=== PATIENT | male | born 1955 | race Caucasian/White ===

== ENCOUNTER 2020-04-29 18:15 | Inpatient (IN) | payer OTHER ==
[~2020-04-29] VITALS: Ht 177.8 cm; Wt 52.2 kg
[2020-04-29 18:20] VITALS: BP 114/87
[2020-04-29 19:07] LABS: ABSOLUTE NEUTROPHILS 6.6 thou/uL (1.4-8.2); BASOPHILS 0.3 % (0.0-2.0); HEMATOCRIT 38.6 % (42.0-52.0); HEMOGLOBIN 13.2 gm/dL (14.0-18.0); LYMPHOCYTES 7.3 % (24.0-44.0); MCH 33.2 pg (26.0-34.0); MCHC 34.1 g/dL (28.0-37.0); MCV 97.4 fL (80.0-100.0); PLATELET COUNT 128 thou/uL (150-400); POLYS 81.4 % (36.0-66.0); RBC 3.97 mil/uL (4.50-6.00); RDW 12.8 % (10.5-14.5); WBC 8.1 thou/uL (4.0-11.0)
[2020-04-29 19:20] LABS: PROTIME 10.7 Seconds (9.3-11.4)
--- NOTE | 2020-04-29 19:51 | NUR ---
SISTER CALLS TO GET INFORMATION ON PATIENT'S STATUS. STATES THAT PATIENT HAS BEEN DRINKING AND HAS A SIGNIFICANT DRINKING PROBLEM. STATES THAT HE NEEDS HELP BUT PATIENT DOESN'T WANT TO CHANGE AT THIS POINT.
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
[2020-04-29 21:06] LABS: ANION GAP 10 mmol/L (7-16); BUN 10 mg/dL (7-18); CALCIUM 9.3 mg/dL (8.5-10.1); CHLORIDE 97 mmol/L (98-107); CO2 30 mmol/L (21-32); CREATININE 0.8 mg/dL (0.7-1.3); GLUCOSE 110 mg/dL (74-106); POTASSIUM 3.6 mmol/L (3.5-5.1); SODIUM 137 mmol/L (136-145)
[2020-04-29 21:15] LABS: TROPONIN-I <0.06 ng/mL (<0.06)
[2020-04-29 21:36] LABS: URINE BILIRUBIN 2+ (Negative); URINE BLOOD NEGATIVE (Negative); URINE CLARITY CLEAR; URINE COLOR YELLOW; URINE GLUCOSE-RANDOM* NEGATIVE (Negative); URINE KETONES 1+ (Negative); URINE LEUKOCYTES-REFLEX NEGATIVE (Negative); URINE PROTEIN (DIPSTICK) 1+ (Negative); URINE SPECIFIC GRAVITY 1.025 (1.005-1.035)
[2020-04-29 21:38] LABS: ICTOTEST (BILI CONFIRMATORY) Positive (Negative); URINE NITRITE-REFLEX POSITIVE (Negative)
[2020-04-29 21:51] LABS: BACTERIA-REFLEX 1-9 Few /HPF (None Seen); CRYSTALS None Seen /LPF (None Seen); SQUAMOUS 0-3 Few /LPF (0-3); URINE WBC-REFLEX None Seen /HPF (0-5)
[2020-04-29 21:52] LABS: HYALINE CASTS 0-3 Few /LPF (None Seen); URINE RBC None Seen /HPF (0-2)
[2020-04-29 22:35] VITALS: BP 127/73
[2020-04-29 22:39] VITALS: BP 114/66
[2020-04-29 23:49] VITALS: BP 106/70
[2020-04-30 00:13] VITALS: BP 119/76
--- NOTE | 2020-04-30 00:30 | NUR ---
Pt. was admitted to the unit from the emergency room accompanied by staff. He is alert and oriented. Admission assessment and history is completed. Iv morphine given for right shoulder pain (see emar) with some relief noted. Pt. has a non-productive cough. Danette MONAE called and aware of consult.
[2020-04-30] MEDS ORDERED: TYLENOL325 M1 PO (00:59)
--- NOTE | 2020-04-30 04:19 | NUR ---
Pt. to be transfered to 3[facility] as a covid rule out since he is coughing. Covid sample sent to the lab. Zofran given for c/o nausea with some relief noted (see emar). Report given to 3W RN.
[2020-04-30 05:30] VITALS: BP 117/77
--- NOTE | 2020-04-30 07:55 | EKG ---
[facility] [place] [address] ELECTROCARDIOGRAM REPORT Name: OLGA LIDIA BELTRE Room #: 363-P ADM IN M.R.#: [id number] Admission: 04/29/20 Attend Phys: Rangel Smith, Discharge: Date of : [birth year] Report #: [id number] THIS REPORT FOR: cc: RAUL - No family physician/PCP FAM - No family physician/PCP Jim Parry MD [facility] ~ THIS REPORT FOR: //name// [facility] ED Test Date: 2020-04-29 Test Time: 18:47:39 Pat Name: OLGA LIDIA BELTRE Department: Room: [facility] Gender: M Helper/Driver: niru : 1956-04-21 Requested By: Mike Bell Order Number: [id number] MD: Jim Parry Measurements Intervals Brilliant Rate: 103 P: 81 AK: 141 QRS: 24 QRSD: 110 T: 62 QT: 354 QTc: 464 Interpretive Statements Sinus tachycardia Abnormal R-wave progression, early transition No previous ECG available for comparison Electronically Signed On 04-30-2020 7:54:55 DIMETHYLANILINE SULFATOR OPERATOR by Jim Parry [email or web address] <ELECTRONICALLY SIGNED> By: Jim Parry MD, FACC 04/30/20 0754 [id number] Jim Parry MD, [facility] /EPI
[2020-04-30 08:00] VITALS: BP 114/72
--- NOTE | 2020-04-30 12:32 | NUR ---
PT MAY BE DC'D FROM [facility] PER ADALBERTO KLINE
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
[2020-04-30 21:00] VITALS: BP 106/69
[2020-05-01 00:09] VITALS: BP 100/66
--- NOTE | 2020-05-01 03:59 | NUR ---
Assumed pt care at 2100. Pt was a transfer from as a rule out. No sign of distress noted in pt. Upon arrival, pt is alert and oriented. ETOH., no symptoms of withdrawal noted. Pt verbalizes pain to right fractured shoulder. Assessment completed and documented. Scheduled meds administered to pt. Right arm immobilizer in place. No acute events overnight. Continue to monitor. No further needs at this time.
[2020-05-01 04:46] LABS: MCH 33.9 pg (26.0-34.0); MCHC 33.8 g/dL (28.0-37.0); MCV 100.1 fL (80.0-100.0); RBC 3.3 mil/uL (4.50-6.00); RDW 12.3 % (10.5-14.5); WBC 8.1 thou/uL (4.0-11.0)
[2020-05-01 04:52] LABS: CALCIUM 9.3 mg/dL (8.5-10.1); CREATININE 0.8 mg/dL (0.7-1.3); MAGNESIUM 1.7 mg/dL (1.8-2.4); POTASSIUM 3.5 mmol/L (3.5-5.1)
[2020-05-01 04:56] LABS: HEMOGLOBIN 11.2 gm/dL (14.0-18.0)
[2020-05-01 05:51] VITALS: BP 98/56
[2020-05-01 09:15] VITALS: BP 67/50; BP 87/47
[2020-05-01 12:33] VITALS: BP 97/60
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
[2020-05-01 15:40] VITALS: BP 102/66
--- NOTE | 2020-05-01 17:02 | NUR ---
ASSESSMENT CHARTED. PT ALERT AND ORIENTED. VSS. PRN PAIN MED GIVEN FOR RIGHT SHOULDER PAIN WITH PARTIAL RELIEF. EVALUATED BY PT/OT. PLAN TO BE DISCHARGE IN AM TO [facility]. NO CONCERNS AT THIS TIME.
[2020-05-01 20:31] VITALS: BP 92/54
--- NOTE | 2020-05-02 05:10 | NUR ---
Assumed pt care at 1900. Pt is alert and oriented. No sign of distress noted in pt. Pt is stablee. Assessment completed abd documented. verbalizes pain to right shoulder. Scheduled meds administered to pt. No acute events overnight. Continue to monitor. Pt to transfer to rehab today.
[2020-05-02 05:23] VITALS: BP 93/60
[2020-05-02] MEDS ORDERED: HYDROCODON-ACE1 EAC7 PO (07:38)
[2020-05-02 07:56] VITALS: BP 110/69
[2020-05-02 09:13] LABS: BE(vivo) 4.1 mmol/L (-2 to +3); HCO3 27.2 mmol/L (22.0-26.0); PCO2 35.3 mmHg (35.0-45.0); PO2 66.4 mmHg (80.0-100.0); pH 7.504 (7.360-7.450); sO2 94.8 % (92.0-98.0)
[2020-05-02] MEDS ORDERED: LITE COAT ASPI325 MG PO (10:26)
[2020-05-02 11:16] VITALS: BP 90/57
--- NOTE | 2020-05-02 12:15 | NUR ---
DC to acute rehab [facility] later this afternoon pending doppler results. Pt's verified as 1955 not 1955 as charted. [facility] liason and UR RN notified so they can verify his benefits and update his face sheet. Pt positive about dc to rehab and hopeful he can get started up there today.
[2020-05-02 15:23] VITALS: BP 81/40
--- NOTE | 2020-05-02 17:05 | NUR ---
ASSESSMENT CHARTED. PT ALERT AND ORIENTED. PRN PAIN MED GIVEN WITH PARTIAL RELIEF. RT TREATMENT PROVIDED ORDERED. UP IN THE CHAIR THIS SHIFT. PT PROGRESSING WELL TOWARDS DISCHARGE GOAL.
[2020-05-02 20:00] VITALS: BP 105/88
[2020-05-03 04:13] VITALS: BP 108/77
--- NOTE | 2020-05-03 06:51 | NUR ---
PAIN WELL CONTROLLED.COMPLAIN OF CONSTIPATION;MIRALAX GIVEN,NO RESULTS YET.POC CONTINUED.
[2020-05-03 08:03] VITALS: BP 95/64
[2020-05-03] MEDS ORDERED: XARELTO15 MG PO (10:20)
[2020-05-03 11:46] VITALS: BP 83/47
--- NOTE | 2020-05-03 14:22 | NUR ---
ASSESSMENT CHARTED. PT ALERT AND ORIENTED. VSS. PRN PAIN MED GIVEN WITH PARTIAL RELIEF. UP IN THE CHAIR THIS SHIFT. ORDERS GIVEN TO TRANSFER PT TO [address] [place], [place] [address]AB. REPORT CALLED IN TO THE NURSE.
== END 2020-05-03 14:27 | DRG 562 ==
LOC: ER 18:15 → EDBD 22:15 → 2N 22:15 → EROBS 22:15 → 4W 23:50 → 3W 04-30 05:32 → 2N 04-30 20:05
PROVIDERS: Emergency Medicine; Nurse Practitioner Family; Pediatrics; ADMIT Surgery; ATTEND Surgery
DX: S42.211A Unspecified displaced fracture of surgical neck of right humerus, initial encounter for closed fracture (principal); J96.01 Acute respiratory failure with hypoxia; I26.99 Other pulmonary embolism without acute cor pulmonale; E43 Unspecified severe protein-calorie malnutrition; S06.9X9A Unspecified intracranial injury with loss of consciousness of unspecified duration, initial encounter; N39.0 Urinary tract infection, site not specified; J93.83 Other pneumothorax; Z68.1 Body mass index [BMI] 19.9 or less, adult; J43.9 Emphysema, unspecified; F10.20 Alcohol dependence, uncomplicated; R13.10 Dysphagia, unspecified; F17.210 Nicotine dependence, cigarettes, uncomplicated; I95.9 Hypotension, unspecified; Z20.828 Contact with and (suspected) exposure to other viral communicable diseases; Z71.6 Tobacco abuse counseling; Z23 Encounter for immunization; Z79.899 Other long term (current) drug therapy; W18.39XA Other fall on same level, initial encounter; Y93.89 Activity, other specified; Y92.89 Other specified places as the place of occurrence of the external cause; Y99.8 Other external cause status
CPT/HCPCS: 10045; 10081; 10797

== ENCOUNTER 2020-05-02 12:53 | Inpatient (IN) | payer OTHER ==
[~2020-05-02] VITALS: Ht 152.4 cm; Wt 52.1 kg
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
[~2020-05-02 12:53] MED LIST: HYDROCODON-ACE1 EAC7 PO; LITE COAT ASPI325 MG PO; TYLENOL325 M1 PO
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
[2020-05-03] MEDS ORDERED: XARELTO15 MG PO (10:20)
--- NOTE | 2020-05-03 16:53 | NUR ---
ASSUMED CARE AT 1430. NEW ADMISSION FROM CCU. CAME IN VIA WC WITH A HOSPITAL STAFF. PT IS ALERT AND ORIENTATED. REPORTS PAIN IN R SHOULDER AT 6/10 ON ARRIVAL AND NORCO NOT DUE TILL 1600. PT IS PLEASANT AND APPROPRIATE WITH NO SIGNS OF DISTRESS OR ANY WITHDRAWAL CONCERNS. R SHOULDER IN IMMOBILIZER WITH GOOD CIRCULATION. BP 98/60, RUNS NORMALLY BETWEEN SBP 80-100. NO SYMPTOMS OF LIGHTHEADEDNESS OR DIZZINESS. DENIES ANY CHEST PAIN OR SHORT OF AIR. HAS PE AND CURRENTLY ON XARELTO. PT, OT TO EVAL AND TREAT. ASSESSMENT DONE AND DOCUMENTED. CONT TO MONITOR.
[2020-05-03 20:09] VITALS: BP 101/64
--- NOTE | 2020-05-04 03:26 | NUR ---
ASSUMED CARE APPROX 1900 EVENING 05/03. PT SITTING UP IN RECLINER AT CHANGE OF SHIFT. PT VOIDING PER URINAL. PT WEARING IMMOBILIZER IN BED AND PT GIVEN PAIN PILL AT HS. PT APPEARS TO BE SLEEPING SOUNDLY WITH HOURLY ROUNDING CHECKS. BED ALARM ON AND CALL LIGHT IN REACH. WILL CONTINUE TO MONITOR.
[2020-05-04 06:26] LABS: HEMATOCRIT 31.8 % (42.0-52.0); HEMOGLOBIN 10.7 gm/dL (14.0-18.0); MCH 33.7 pg (26.0-34.0); MCHC 33.7 g/dL (28.0-37.0); RBC 3.18 mil/uL (4.50-6.00); RDW 12.7 % (10.5-14.5); WBC 6.2 thou/uL (4.0-11.0)
[2020-05-04 06:34] LABS: CALCIUM 9.6 mg/dL (8.5-10.1); CREATININE 0.6 mg/dL (0.7-1.3); POTASSIUM 3.9 mmol/L (3.5-5.1)
[2020-05-04 07:05] LABS: FOLIC ACID 16.3 ng/mL (8.6-58.9); TSH 2.166 uIU/mL (0.358-3.740)
[2020-05-04 08:22] VITALS: BP 87/60
--- NOTE | 2020-05-04 11:49 | NUR ---
ASSUMED CARE AT 0700. PT HAD AN UNEVENTFUL NIGHT AND SLEPT FAIRLY WELL. ALERT AND ORIENTATED AND SEEMS ANXIOUS AND REQUESTED FOR PAIN MEDS. REPORTS PAIN AT 9/10 AT SHIFT CHANGE. APPETITE GOOD, HAD A BOWEL MOVEMENT TODAY. PARTICIPATING IN THERAPY BUT SEEMS ANXIOUS. RUE SECURED IN IMMOBILIZER, NWB, CIRCULATION GOOD, ABLE TO MOVE FINGERS. HYPOTENSIVE THIS MORNING WITH NO SIGNS OF LIGHTHEADEDNESS OR DIZZINESS. RECHECKED AND IS UP IN THE SBP 90S. PT IS CALLING APPROPRIATELY WITH NO SIGN OF DISTRESS OR IMPULSIVENESS. CONT TO MONITOR.
[2020-05-04 19:35] VITALS: BP 98/62
--- NOTE | 2020-05-05 03:01 | NUR ---
05-04-20 CARE TRANSFERRED 1899 OBSERVED PT SITTING UP IN BED WATCHING TV. 193 PT AAOX4, VSS, RR EVEN AND NONLABORED ON RA, AUDIBLE WHEEZING NOTED, UPON AUSCULATION PT LUNGS DIMINISHED AND FINE CRACKLES NOTED BI-LAT, 02 SAT 93%. PT REPORTS PAIN AT 10 ON 0-10 SCALE RT ARM. PULMONARY CONTACTED FOR PT EVENING BREATHING TREATMENT. PT PRN PAIN MEDICATION ADMIN. THEN STAND-BY ASSIST WITH GAIT BELT IN PLACE AND PT MOVE WITH WALKER, PT GAIT STARTED OUT UNSTEADY, BUT AFTER A FEW FIRST STEPS GAIT BECAME STRONGER. PT HAD LARGE BROWN, FORMED BM, WITH YELLOW URINE. DURING MEDICATION ADMIN PT HAD NO DIFFICULTIES. LATER ASSISTED PT WITH REPOSITION IN BED AND EMPTY 175ML OF YELLOW URINE, NO SEDIMENT OR FOUR ORDOR NOTED. LATER PT REPORTED PAIN AT 9 ON 0-10 SCALE AND PRN PAIN MEDICATION ADMIN. DURING NEXT ROUND AND REASSESSMENT NOTED PT SUPINE, RESTING WITH EYES CLOSED. ZERO S/S OF ACUTE DISTRESS NOTED, PT WILL CONTINUE TO BE MONITOR PER 5[facility] PROTOCOL.
[2020-05-05 08:09] VITALS: BP 98/61
--- NOTE | 2020-05-05 10:16 | NUR ---
ASSUMED CARE AT 0700. PATIENT IS ALERT AND ORIENTEDX4. PATIENT HAS RIGHT SHOULDER AND ARM PAIN. RIGHT ARM IN SLING/IMMOBILIZER. LUNGS ARE COARSE AND DEMINISHED , WITH WHEEZES. PATIENT CONTINUES ON RESPIRATORY TX. UP IN CHAIR FOR MEALS. GAIT UNSTEADY. UP WITH ASISST OF 1 STAFF AND GAIT BELT AND WALKER. FALL AND SAFETY PROTOCOLS IN PLACE. C/O PAIN IN HIS RIGHT ARM AND SHOULDER. PATIENT MEDICATED WITH PRN PAIN MED. CONTNIUES TO PROGRESS SLOWLY TOWARDS D/C GOALS. WILL CONTINUE TO MONITER.
[2020-05-05 19:20] VITALS: BP 106/64
--- NOTE | 2020-05-06 00:23 | NUR ---
PT ALERT AND ORIENTED X 4. VOIDING WITHOUT DIFFICULTY PER URINAL. RIGHT ARM SLING ON. PT C/O PAIN IN RIGHT SHOULDER. HYDROCODONE GIVEN ORDERED. BED ALARM ON FOR SAFETY. PT CHECKED ON HOURLY ROUNDS.
[2020-05-06 08:00] VITALS: BP 104/59
[2020-05-06 08:05] LABS: HEMATOCRIT 32.6 % (42.0-52.0); MCH 34.3 pg (26.0-34.0); MCHC 33.9 g/dL (28.0-37.0); MCV 101.2 fL (80.0-100.0); RBC 3.22 mil/uL (4.50-6.00); RDW 12.5 % (10.5-14.5); WBC 5.2 thou/uL (4.0-11.0)
[2020-05-06 08:06] LABS: PLATELET COUNT 275 thou/uL (150-400)
[2020-05-06 08:22] LABS: CALCIUM 9.6 mg/dL (8.5-10.1); CREATININE 0.6 mg/dL (0.7-1.3); MAGNESIUM 1.8 mg/dL (1.8-2.4); PHOSPHORUS 3.6 mg/dL (2.5-4.9); POTASSIUM 4.1 mmol/L (3.5-5.1)
[2020-05-06 09:48] LABS: ABSOLUTE NEUTROPHILS 3.6 thou/uL (1.4-8.2); ANISOCYTOSIS SLIGHT
--- NOTE | 2020-05-06 15:08 | NUR ---
ASSUMED CARE OF PT AT 0700. PT IS A&OX4. IS ON ROOM AIR. IS STABLE. REPORTS PAIN IN RIGHT SHOULDER THAT IS BEING MANAGED WITH ORAL PAIN MEDS & OTHER THERAPUETIC TECHNIQUES. IMMOBILIZER IN PLACE. IS ABLE TO WIGGLE FINGERS. CAP REFILL < 3 SEC. APPROPRIATE COLOR. PT IS UP WITH 1 ASSIST, GB, WALKER. FALL PRECAUTIONS IN PLACE. NICOTINE PATH LEFT SHOULDER, APPLIED TODAY. PT IS CURRENTLY UP IN CHAIR. CALL LIGHT WITHIN REACH. WILL CONTINUE TO MONITOR.
[2020-05-06 19:31] VITALS: BP 102/64
[2020-05-07 07:42] VITALS: BP 104/61
--- NOTE | 2020-05-07 08:11 | NUR ---
ASSUMED CARE OF PT AT 0700. PT IS A&OX4. IS ON ROOM AIR. HAS A CONGESTED COUGH. SPUTUM PRODUCTION NOT VISUALIZED. IS STABLE. REPORTS PAIN IN RIGHT ARM 10/10 WITH PAIN MEDS & OTHER THERAPUETIC TECHNIQUES. IMMOBILIZER IN PLACE. IS ABLE TO WIGGLE FINGERS. COLOR IS APPROPRIATE. CAP REFILL < 3 SEC. PT REPORTED INTERMITTENT NUMBNESS. IS UP WITH 1 ASSIST, GB, & QUAD CANE. FALL PRECAUTIONS & HOURLY ROUNDING CONTINUED THIS SHIFT. PT CALLS APPROPRIATELY FOR ASSISTANCE PRN. LABS REVIEWED. VITALS ASSESSED. PT IS CURRENTLY SITTING UP IN RECLINER. CALL LIGHT WITHIN REACH. PT VOIDS PER URINAL. NICOTINE PATCH IN PLACE TO LEFT SHOULDER.
--- NOTE | 2020-05-07 14:56 | NUR ---
ASSUMED CARES AT 0800. PT AWAKE, ALERT AND ORIENTED *4. VITALS REMAIN STABLE. C/O PAIN IN RUE 04/07, HYDROCODONE ADMINISTERED Q4H PRN. ARM IMMOBILISER REMAINS IN PLACE. EDEMA REMAINS ON RIGHT ELBOW, ROM PRECAUTIONS MAINTAINED. CAPILLARY REFILL OF LUE IS LESS THAN 3 SEC, PT WIGGLES FINGERS. PARTICIPATED WELL IN ALL THERAPIES AND TOLERATED WELL. Q1H VISUAL CHECKS. CALL LGT WITHIN REACH. FALL PRECAUTIONS IN PLACE.
[2020-05-07 20:00] VITALS: BP 98/63
--- NOTE | 2020-05-08 04:27 | NUR ---
Assumed care of patient this pm shift. Patient in good spirits, alert and oriented x4. Patient takes medications whole with thin fluids. C/O RUE pain. [place] given and patient slept. Patient uses urinal that is within reach and voided this evening. Vital signs are stable. Falls precautions in place. Call light within reach. No signs of acute distress. We will continue to monitor per hospital policy.
[2020-05-08 07:55] VITALS: BP 90/58
--- NOTE | 2020-05-08 10:44 | NUR ---
Alert and orientated X4. Sitting in room watching TV without s/o distress. States he is having pain 10/10 in R shoulder, requesting pain meds. Hydrocodone given. Breath sounds clear t/o, bilaterally equal. Reg HR auscultated. Color pink with brisk capillary refill and palpable peripheral pulses. Yellow urine per urinal. Active bowel sounds over soft, flat abdomen. Reports BM yesterday. Able to stand and take few steps with aid of cane. R arm immobilizer in place. Participating in therapy this AM.
[2020-05-08 11:11] VITALS: BP 102/62
--- NOTE | 2020-05-08 13:00 | NUR ---
team meeting, reccommendation: offer other options for dcp for . will cont following as needed for dc needs.
[2020-05-08 19:13] VITALS: BP 101/70
--- NOTE | 2020-05-09 01:35 | NUR ---
NORCO AND ROBAXIN GIVEN FOR PAIN IN RIGHT PROXIMAL HUMERUS. STATES ABLE TO BEND AT ELBOW DIRECTED BY THERAPY TODAY. USING URINAL AT BEDSIDE, SLEEPING NOW
[2020-05-09 07:32] VITALS: BP 89/52
--- NOTE | 2020-05-09 09:35 | NUR ---
ASSUMED CARE AT 0700. PT IS ALERT AND ORIENTATED. REPORTED PAIN AT 8/10 AND WAS MEDICATED AT 0500. HAD AN UNEVENTFUL NIGHT AND SLEPT WELL. APPETITE GOOD, HAD A BM YESTERDAY AND REFUSED HIS LAXATIVE TODAY. HYPOTENSIVE AND IS ASYMTOMATIC. DIURESING WELL. LIMITED PARTICIPATION WITH OT THIS MORNING DUE TO PAIN. OT WILL CONT WITH ANOTHER HOUR LATER AFTER LUNCH. NO OTHER CONCERNS FOR NOW AND WILL CONT TO MONITOR.
--- NOTE | 2020-05-09 11:30 | NUR ---
cm visited with pt at bedside, cm cont to wear face mask and shield during visit. senior blue book and went over skilled list of [facility] for [facility]. referral to be sent, no number for [facility] vill[facility], call my sister [phone] lauren and she will give it to you.
[2020-05-09 19:24] VITALS: BP 100/63
--- NOTE | 2020-05-10 02:00 | NUR ---
SLEPT ONLY UNTIL 0200 TODAY AND IS NOW UP AND SITTING IN CHAIR. USES URINAL, UP TO TOILET WITH SBA, GAITBELT IF NEED FOR BM OCCURS, DECLINED MIRALAX AT BEDTIME AND IS WORKING ON "MATH" TO TIME HIS PAIN PILL FOR 30 MINUTES PRIOR TO THERAPY SINCE TAKING A NORCO AT BEDTIME AND AGAIN NOW. PLEASANT AND CAREFUL TO NOT BUMP HIS RIGHT ELBOW
[2020-05-10 07:39] VITALS: BP 97/58
--- NOTE | 2020-05-10 13:01 | NUR ---
ASSUMED CARE AT 0700. PT HAD AN UNEVENTFUL NIGHT AND SLEPT WELL. ALERT AND ORIENTATED AND GETS ANXIOUS WITH ACTIVITY. RATES PAIN IN RIGHT ARM AT 10/10 WITH ACTIVITY AND NOT MUCH RELIEF WITH NORCO. THERAPY LIMITED DUE TO PAIN AND ANXIETY. SINDY NASCIMENTO NOTED, WILL GIVE ROBAXIN AND IF STILL NO RELIEF WILL EITHER INCREASE NORCO OR ADD LIDOCAINE PATCH. PT REPORTED SOME RELIEF WITH ROBAXIN AND FELIPA NASCIMENTO SCHEDULED IT TO TID. APPETITE GOOD, HAD A BM TODAY. DIURESING WELL. CONT TO MONITOR.
[2020-05-10 21:37] VITALS: BP 100/65
--- NOTE | 2020-05-11 03:04 | NUR ---
assumed care at approx 1900 evening 05/10. pt lying in bed with head of bed elevated at change of shift. pt alert and oriented x4, appropriate and cooperative somewhat anxious at times. immobilizer to right arm/shoulder. pt given hs meds and pain meds as ordered/requested. pt sleeping well most of night, voiding per urinal. pt up sitting in recliner now per his request. call light in reach. will continue to monitor.
[2020-05-11 06:28] LABS: HEMATOCRIT 31.1 % (42.0-52.0); HEMOGLOBIN 10.5 gm/dL (14.0-18.0); MCH 34.4 pg (26.0-34.0); MCHC 33.8 g/dL (28.0-37.0); MCV 101.8 fL (80.0-100.0); PLATELET COUNT 342 thou/uL (150-400); RBC 3.06 mil/uL (4.50-6.00); RDW 13.1 % (10.5-14.5); WBC 4.7 thou/uL (4.0-11.0)
[2020-05-11 06:53] LABS: CREATININE 0.7 mg/dL (0.7-1.3); MAGNESIUM 1.7 mg/dL (1.8-2.4); POTASSIUM 4.1 mmol/L (3.5-5.1)
[2020-05-11 07:11] VITALS: BP 115/86
[2020-05-11 11:01] LABS: ANISOCYTOSIS SLIGHT; METAMYELOCYTES 1 %
[2020-05-11 13:16] VITALS: BP 100/62
--- NOTE | 2020-05-11 14:43 | NUR ---
ASSUMED CARE OF PT AT 0700. PT IS A&OX4 AND VITAL SIGNS ARE STABLE. PT REPORTS PAIN, MANAGED WITH PO MEDICATIONS. PT PARTICIPATED WITH SCHEDULED THERAPIES. CALLS APPROPRIATELY FOR ASSISTANCE. PT IS NOT IMPULSIVE OR AGGITATED AT THIS TIME. FALL PRECAUTIONS IN PLACE AND NURSING WILL CONTINUE TO MONITOR.
--- NOTE | 2020-05-11 15:39 | NUR ---
kenny sent updates to [facility] . kenny tried calling [facility] back to let them know he picked [facility] since closer.
--- NOTE | 2020-05-11 16:25 | PLAN ---
[facility] [place] [address] REHAB UNIT PLAN OF CARE Name: OLGA LIDIA BELTRE Room #: 515-P ADM IN M.R.#: [id number] Admission: 05/03/20 Attend Phys: Liam Driscoll MD Discharge: Date of : 53 Report #: [id number] THIS REPORT FOR: //name// CC: Liam Driscoll [facility] physician/PCP DATE OF SERVICE: 05/04/2020 PROGRESS NOTE/POST-ADMISSION PHYSICIAN EVALUATION He has been admitted for acute in-hospital inpatient rehabilitation. SUBJECTIVE: The patient is a 65-year-old male who was originally admitted to [facility] on 04/29/2020 with right shoulder pain after a fall. He was diagnosed with a right proximal humerus comminuted fracture with multiple displacement. His course was complicated by a small left pulmonary embolism. He was placed on Lovenox, switched to Xarelto, was given steroids and Rocephin initially. There is a question as to whether he had hypotension or syncope with the initial fall. He also has a prior history of a closed head injury/traumatic brain injury. Approximately 1-2 months prior, he had a fall with loss of consciousness and woke up in the hospital and was unsure if he had hypotension or syncope at that time. He did not have any rehabilitation after that event. As far as past medical history, allergies, and social history, please see the history and physical documentation. PHYSICAL EXAMINATION: GENERAL: He is pleasant, in no distress. He is alert. He is small statured, thin. VITAL SIGNS: Last recorded temperature 97.9, pulse 82, respirations 16, blood pressure 101/64. HEENT: Appeared to be benign. No coughing is noted, but there was some noted while he was eating and we will ask speech therapy to at least do a bedside evaluation. CHEST: Sounded clear. CARDIAC: Regular rate and rhythm. ABDOMEN: Bowel sounds positive, nontender. GENITOURINARY AND RECTAL: Deferred. EXTREMITIES: He has got a right upper extremity immobilizer in place. Some swelling as expected of the right thumb and fingers. He can move them without obvious weakness. He has discomfort related to the right humerus fracture as expected. In his lower extremities, there is no focal calf swelling, functional range of motion. His right upper extremity nonweightbearing with the sling/immobilizer in place. Functionally, he has been min assist coming to stand and min assist, ambulated short distance with a quad cane. [address] [address] REHAB UNIT PLAN OF CARE Name: OLGA LIDIA BELTRE Room #: 515-P [facility] IN [facility]#: [id number] Admission: 05/03/20 Attend Phys: Liam Driscoll MD Discharge: Date of : 53 Report #: [id number] ASSESSMENT: A 65-year-old male with the following problem list: 1. 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 He had a prior fall with loss of consciousness with cognitive concerns. He does have some delay with cognitive processing noted. 2. Pulmonary embolism with acute hypoxic respiratory failure. 3. Right proximal comminuted humerus fracture, nonweightbearing. 4. Hypotension, question syncopal event. 5. Small left apical pneumothorax. 6. Chronic obstructive pulmonary disease, probable 7. History of tobacco abuse. 8. History of ETOH abuse. PLAN: From a post-admission physician evaluation perspective, there are no relevant changes since the preadmission screening. Please see the above review of prior and current medical and functional conditions and comorbidities. Please see the patient's previous and current functional status. As far as risk of complications, the patient has multiple medical comorbidities as noted above. Initial plan of care involves the interdisciplinary acute inpatient rehabilitation program. Prognosis is reasonably good with estimated length of stay probably at least 2 weeks. Potential barriers would include his multiple medical comorbidities and decreased functional status. He meets diagnostic criteria for an acute in-hospital inpatient rehabilitation stay. He meets the medical necessity criteria. We will have the change consultant physicians continue to follow. He does have the tolerance for therapies and has appropriate discharge goals back to the home setting. <ELECTRONICALLY SIGNED> By: Liam Driscoll MD 05/11/20 1625 0825 [id number] Liam Driscoll MD /[facility]
--- NOTE | 2020-05-11 16:25 | PLAN ---
[facility] [place] [address] REHAB UNIT PLAN OF CARE Name: OLGA LIDIA BELTRE Room #: 515-P ADM IN M.R.#: [id number] Admission: 05/03/20 Attend Phys: Liam Driscoll MD Discharge: Date of : 53 Report #: [id number] THIS REPORT FOR: //name// CC: Liam Driscoll [facility] physician/PCP DATE OF SERVICE: 05/05/2020 PROGRESS NOTE/OVERALL PLAN OF CARE SUBJECTIVE: The patient was seen back in followup on 05/05/2020. He was in no distress. He has been afebrile, temperature 36.6, pulse 84, respirations 20, blood pressure 106/64. He takes hydrocodone p.r.n. for pain. He has been using the urinal. Functionally, he has been min assist with sit to stand and bed to chair transfers. He has been ambulating 130 feet min assist with a quad cane. In occupational therapy, lower body dressing has been mod assist, upper body is max assist. Cognitively, he has moderate deficits. He has mild verbal deficits, but moderate cognitive deficits. He has severe memory deficits. ASSESSMENT: A 65-year-old male with the following problem list: 1. 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 He had a prior fall with loss of consciousness and does have cognitive abnormalities as noted. 2. Pulmonary embolism with acute hypoxic respiratory failure. 3. Right proximal comminuted humerus fracture, nonweightbearing. He is being treated nonsurgically. 4. Hypotension, question syncopal event. 5. Small left apical pneumothorax. 6. Chronic obstructive pulmonary disease, probable. 7. History of tobacco abuse. 8. History of alcohol abuse. PLAN: The overall plan of care includes the followin. Estimated length of stay probably at least 2 weeks. 2. Medical prognosis is reasonably good. 3. Anticipated interventions includes the interdisciplinary acute inpatient rehabilitation program. 4. Anticipated functional outcomes would be for the patient to become modified independent with transfers, mobility, ADLs, cognitive communication issues that he can return back to the home setting. 5. Discharge destination would be back to the home setting. He had been living in an apartment prior. Case management is working further in this regard. There is a sister as well and she apparently lives in [place]. He does have neighbors that helped him in his apartment. 6. Expected therapy by discipline includes PT, OT and speech 1 hour per day each five days a week throughout the duration of the acute [place] [address] REHAB UNIT PLAN OF CARE Name: OLGA LIDIA BELTRE Room #: 515-P [facility] IN [facility].#: [id number] Admission: 05/03/20 Attend Phys: Liam Driscoll MD Discharge: Date of : 53 Report #: [id number] The patient's prognosis for significant practical improvement within a reasonable period of time appears good. Given the patient's complex medical conditions and the further medical complications, rehabilitation services cannot be safely provided at a lower level of care such as a intermediate facility. <ELECTRONICALLY SIGNED> By: Liam Driscoll MD 05/11/20 1625 0914 [id number] Liam Driscoll MD /nt
[2020-05-11 19:56] VITALS: BP 107/69
--- NOTE | 2020-05-12 03:49 | NUR ---
assumed care approx 1900 evening 05/11. pt sitting up in bed alert and oriented x4, appropriate and cooperative. immobilizer to right arm/shoulder intact. pt up to bathroom and had large bm in toilet. pt appears to be sleeping soundly with hourly rounding checks. bed alarm on and call light in reach. will continue to monitor.
[2020-05-12 08:00] VITALS: BP 92/56
--- NOTE | 2020-05-12 11:51 | NUR ---
ASSUMED CARE AT 0700. PT HAD AN UNEVENTFUL NIGHT AND SLEPT WELL. PT IS ALERT AND ORIENTATED, GETS ANXIOUS WITH THERAPY. APPETITE GOOD, HAD A BM YESTERDAY. NURSING WALKED WITH PT TODAY AND PARTICIPATED WITH OT. PAIN IS AT CONSTANT LEVEL OF 8 TOP 9, MEDICATED WITH NORCO PRN AND ROBAXIN WITH PARTIAL RELIEF AT 7/10. RUE IN IMMOBILIZER AND NWB. WILL CONT TO MONITOR.
[2020-05-12 19:14] VITALS: BP 109/76
--- NOTE | 2020-05-12 22:52 | NUR ---
PT ALERT AND ORIENTED X 4. AMB TO BR WITH CANE AND ASSIST X 1 WITHOUT DIFFICULTY. RIGHT ARM IMMOBILIZER ON. VOIDING ADEQUATE AMTS YELLOW URINE PER URINAL. PT C/O PAIN IN RIGHT SHOULDER. HYDROCODONE GIVEN ORDERED. BED ALARM ON FOR SAFETY. PT APPEARS TO BE SLEEPING ON HOURLY ROUNDS.
[2020-05-13 08:53] VITALS: BP 105/64
--- NOTE | 2020-05-13 12:53 | NUR ---
PT ALERT AND ORIENTED TIMES FOUR. VSS. PT C/O PAIN PRN PAIN MEDICATIONS GIVEN WITH SOME RELEIF. PT TOLERATES MED AND MEALS. PT HAS BEEN UP SITTINJG IN THE CHAIR FOR MOST OF THE SHIFT. PT PROGRESSING TOWRADS POC GOALS.
[2020-05-13 16:07] VITALS: BP 106/66
[2020-05-13 20:00] VITALS: BP 101/64
--- NOTE | 2020-05-13 21:33 | NUR ---
ASSUMED CARE OF PT AT 1850. PT IS A&OX4. IS ON ROOM AIR. REPORTS PAIN IN RIGHT ARM 04/07. PAIN MEDICATION ADMINISTERED, WELL OTHER THERAPUETIC TECHNIQUES. IMMOBILIZER IN PLACE. LIDOCAINE PATCH REMOVED. EDEMA & REDNESS NOTED. PAINFUL TO TOUCH. IS ABLE TO WIGGLE FINGERS; COLOR APPROPRIATE FOR RACE; CAP REFILL < 3 SEC. DENIES NUMBNESS & TINGLING AT THIS TIME. LABS & VITALS REVIEWED. PT IS CONTINENT & VOIDS PER URINAL. IS CURRENTLY IN BED ASLEEP. IS ABLE TO REPOSITION SELF. CALL LIGHT WITHIN REACH. WILL CONTINUE TO MONITOR.
[2020-05-14 07:30] VITALS: BP 101/56
--- NOTE | 2020-05-14 11:50 | NUR ---
cm received phone call from [facility], they are still able to accept inocente for short term rehab, just need updated covid. his is over a week old. cm called spoke with bedside nurse and going to have md order covid and fax updated therapy notes to [phone]. will cont following as needed for dc needs.
--- NOTE | 2020-05-14 13:05 | NUR ---
ASSUMED CARE AT 0700. PT IS ALERT AND ORIENTATED. SLEPT WELL. PAIN IS AT CONSTANT LEVEL BETWEEN 9 AND 10, MEDICATED WITH NORCO, LIDOCAINE PATCH AND ROBAXIN. NOT MUCH RELIEF PER PT. PT SEEMS COMFORTABLE AND RESTING IN CHAIR. APPETITE GOOD. HAD A BM YESTERDAY. MIRALAX GIVEN THIS MORNING. PARTICIPATING IN THERAPY. PT IS GOING TO [facility] TOMORROW AND A COVID TESTING WAS DONE TODAY. PT WAS INITIALLY UPSET WITH TESTING DUE PREVIOUS TESTING AND DISCOMFORT, TOLERATED PROCEDURE. PT EDUCATED ON GETTING A SECOND TESTING PRIOR TO DC TO ANOTHER FACILITY AND VERBALIZES UNDERSTANDING.
[2020-05-14 19:54] VITALS: BP 105/71
--- NOTE | 2020-05-15 00:49 | NUR ---
PT ASSESSMENT COMPLETED AND VSS. MEDS GIVEN ORDERED AND WELL TOLERATED. FALL PRECAUTIONS IN PLACE. VOIDING MODERATE AMOUNT OF YELLOW URINE IN URINAL INDEPENTENTLY. R ARM BRACE IN PLACE. SOME SWELLING CONTINUES TO RIGHT ELBOW. PRN PAIN MEDICATION HELPFUL. SLEEPING WELL. ANXIOUS ABOUT LEAVING TO NEW FACILITY TOMORROW. WILL CONTINUE TO MONITOR FREQUENTLY.
[2020-05-15 07:39] VITALS: BP 101/58
[2020-05-15] MEDS ORDERED: LIDOPATCH1 EACH TRANSDERM (08:16)
[2020-05-15] MEDS ORDERED: VITAMIN B-12500 MCG PO (08:16)
[2020-05-15] MEDS ORDERED: METHOCARBAMOL500 M2 PO (08:16)
[2020-05-15] MEDS ORDERED: MIRALAX17 GM PO (08:16)
[2020-05-15] MEDS ORDERED: TRAZODONE HCL50 MG PO (08:16)
[2020-05-15] MEDS ORDERED: FOLIC ACID1 MG PO (08:16)
[2020-05-15] MEDS ORDERED: NICOTINE TRANSD21 M1 TRANSDERM (08:16)
[2020-05-15] MEDS ORDERED: PULMICORT0.5 MG/22 INH (08:16)
[2020-05-15] MEDS ORDERED: IPRAT-ALBUT 0.5-3 ML INH (08:16)
[2020-05-15] MEDS ORDERED: XARELTO20 MG PO (08:18)
[2020-05-15] MEDS ORDERED: XARELTO15 MG PO (08:18)
--- NOTE | 2020-05-15 12:50 | NUR ---
team meeting, reccomendation: dc today to [facility]. bedside nurse to call report. pt to talk sling with him to skilled rehab, he still wanting to wear the immbolizer. sampler pickup time today between 230 and 330 pm.
--- NOTE | 2020-05-15 13:21 | NUR ---
PT DISCHARGING TODAY TO [facility] FAXED DC ORDERS/SUMMARY SPOKE WITH JUDAH IN ADM SHE RECEIVED ORDERS AND ARRANGED TRANSPORT BY [facility] FOR 0727-0319 TODAY. PT TO NOTIFY FAMILY/FRIEND OF DC AND TIME OF TRANSPORT. UNIT NOTIFIED AND CHART COPY PER US. RN TO CALL REPORT TO [phone].
--- NOTE | 2020-05-15 19:57 | NUR ---
ASSUMED CARE OF PT AT 0700. PT IS A&OX4 AND VITAL SIGNS ARE STABLE. PT REPORTS PAIN TO RUE, MANAGED WITH PO MEDICATIONS. ORDERS FOR DISCHARGE TO FACILITY TODAY. CALLED REPORT TO FACILITY NURSE AT 1330 , PT LEFT FACILITY AT 1445. BELONGINGS REMOVED BY PT AT TIME OF DISCHARGE. DISCHARGE PACKET SENT WITH PT AND RX SCRIPTS IN PACKET. PT SIGNED D/C PAPERS PRIOR TO DISCHARGE AND DENIES QUESTIONS OR CONCERNS.
== END 2020-05-15 14:45 | DRG 82 ==
PROVIDERS: Internal Medicine; Nurse Practitioner; Nurse Practitioner Family; ADMIT Physical Medicine & Rehabilitation; ATTEND Physical Medicine & Rehabilitation
DX: S06.9X9A Unspecified intracranial injury with loss of consciousness of unspecified duration, initial encounter (principal); J96.01 Acute respiratory failure with hypoxia; S42.201A Unspecified fracture of upper end of right humerus, initial encounter for closed fracture; W18.39XA Other fall on same level, initial encounter; Y93.89 Activity, other specified; Y92.89 Other specified places as the place of occurrence of the external cause; Y99.8 Other external cause status; G47.00 Insomnia, unspecified; F17.210 Nicotine dependence, cigarettes, uncomplicated; F10.20 Alcohol dependence, uncomplicated; Y90.9 Presence of alcohol in blood, level not specified; Z71.6 Tobacco abuse counseling
CPT/HCPCS: 10112